=== PATIENT | male | born 1960 | race Caucasian/White ===

== ENCOUNTER 2022-01-30 08:27 | Emergency (ER) | payer MEDICAID, SELFPAY ==
[2022-01-30] VITALS (18 sets, daily range): BP systolic 112–125; BP diastolic 51–80; PULSE 55–84; RESP 6–20; TEMP 36.5; O2SAT 95–98
--- NOTE | ~2022-01-30 | CT_ITS ---
EXAMINATION: CT brain wo con DATE: 01/30/2022 09:36 INDICATION: Seizure. TECHNIQUE: Computed tomography (CT) of the head was performed without intravenous contrast. The mA wa s adjusted according to patient size. Iterative reconstruction technique was employed. The dose-lengt h product was 605.33 mGy-cm. COMPARISON: None FINDINGS: There is no intracranial hemorrhage, acute infarction, or abnormal intracranial mass lesion . The ventricles are normal in size. There is mild mucosal thickening in the paranasal sinuses. The m astoid air cells are normal. The orbits are normal. IMPRESSION: 1. Normal brain. Reviewed, dictated and finalized at location A. IMPRESSION: 1. Normal brain.
--- NOTE | 2022-01-30 08:40 | ECG_ITS ---
Measurements Intervals [place] Rate: 70 P: 56 AK: 203 QRS: -35 QRSD: 107 T: 38 QT: 383 QTc: 416 Interpretive Statements SINUS RHYTHM LEFT AXIS DEVIATION BORDERLINE AV CONDUCTION DELAY BASELINE WANDER- I, II BORDERLINE ECG Electronically Signed On 01-30-2022 8:53:58 CDT by Truong Herrera D.O.
--- NOTE | 2022-01-30 08:58 | ED.GENADULT ---
HPI - General Adult General Chief complaint: Seizure <KEN Pal Last Filed: 01/30/22 11:26> Stated complaint: SZ <KEN Pal Last Filed: 01/30/22 11:26> Time Seen by Provider: 01/30/22 08:58 <Kelsea Rivera PA-C - Last Filed: 01/30/22 11:26> Source: patient and family <KEN Pal Last Filed: 01/30/22 11:26> Mode of arrival: ambulatory <KEN Pal Last Filed: 01/30/22 11:26> Limitations: no limitations <KEN Pal Last Filed: 01/30/22 11:26> History of Present Illness HPI narrative: Patient is a 61 y/o male who presents to the ED with c/o seizure-like activity. Patient significant other and sister at bedside. He lives with significant other. S.O. reports that patient had an episode of seizure-like activity last Sunday, and this morning. S.O. states he woke up hearing patient thrashing around and went to his bedroom. He reports the episodes consist of abnormal movements that lasts a few minutes and a period of confusion/decreased responsiveness for at least 10-15 minutes, described as though the patient is out of it . He states the patient's movements seemed very sporadic, and not necessarily tonic-clonic in nature with shaking or locking of extremities. S.O. does report that patient had incontinence of his bladder last Sunday, but denies any issues with this today. No biting of tongue. Patient was evaluated by EMS last Sunday, but refused transport to the hospital for evaluation. He does not remember anything about the episodes. Today, he reports he remembers going to sleep last night and waking up to his S.O. in his bedroom. He denies any headache, vision changes, dizziness, lightheadedness, chest pain, difficulty breathing, abdominal pain, nausea, vomiting, focal weakness. Denies a diagnosed history of seizures, but states he may have had a seizure 40 years ago. He has never been on any antiepileptic medications. Denies any recent stressful events. No new medications. No recent illnesses. <Kelsea Rivera PA-C - Last Filed: 01/30/22 11:26> Related Data Allergies/adverse reactions: Allergies Allergy/AdvReac Type Severity Reaction Status Date / Time No Known Allergies Allergy Verified 01/30/22 08:41 <Kelsea Rivera PA-C - Last Filed: 01/30/22 11:26> Review of Systems Review of Systems: CONSTITUTIONAL: Denies fever, chills. EYES: Denies visual changes. CARDIOVASCULAR: Denies chest pain. RESPIRATORY: Denies dyspnea. GASTROINTESTINAL: Denies abdominal pain, nausea, vomiting. GENITOURINARY: Reports incontinence of urine. MUSCULOSKELETAL: Denies back pain. NEUROLOGIC: Reports seizure-like activity. Denies headache, dizziness, lightheadedness, numbness, or focal weakness. <Kelsea Rivera PA-C - Last Filed: 01/30/22 11:26> All systems reviewed & are unremarkable except as noted in HPI and below <Kelsea Rivera PA-C - Last Filed: 01/30/22 11:26> PMFSH Past Medical History Medical History: Medical History (Updated 01/30/22 @ 11:10 by Kelsea Rivera PA-C) No pertinent past medical history <Kelsea Rivera PA-C - Last Filed: 01/30/22 11:26> Surgical History Surgical History: Surgical History (Updated 01/30/22 @ 09:59 by Kelsea Rivera PA-C) No pertinent past surgical history <Kelsea Rivera PA-C - Last Filed: 01/30/22 11:26> Social History Social History: Social History (Updated 01/30/22 @ 09:59 by Kelsea Rivera PA-C) Smoking status: Never smoker <Kelsea Rivera PA-C - Last Filed: 01/30/22 11:26> Exam Narrative: GENERAL: Well appearing, well-nourished, non-toxic, in no acute distress. HEAD: Normocephalic, atraumatic. EYES: PERRL/EOMI, conjunctivae clear bilaterally. No nystagmus. NECK: Supple. No adenopathy, no masses. RESPIRATORY: Airway patent, respirations nonlabored. Clear to auscultation bilaterally, no rales, rhonchi, wheezing. CARDIOVASCULAR: Regular rate and rhyt
[2022-01-30 09:07] LABS: Basophils Absolute Auto 0.1 K/mm3 (0.0-0.1); Basophils Percent Auto 0.8 % (0.2-1.2); Eosinophils Absolute Auto 0.1 K/mm3 (0-0.3); Hemoglobin 14.1 g/dL (14.0-18.0); Immature Granulocyte Absolute 0.02 K/mm3 (0.00-0.031); Immature Granulocyte Percent A 0.3 % (0-0.5); Lymphocytes Absolute Auto 1.16 K/mm3 (0.9-3.2); Lymphocytes Percent Auto 16.2 % (18.3-44.2); Mean Corpuscular HGB Conc 33.6 g/dl (32-36); Mean Corpuscular Volume 95.2 fl (80-100); Mean Platelet Volume 8.4 fl (7.4-10.4); Monocytes Absolute Auto 0.8 K/mm3 (0.1-0.6); Monocytes Percent Auto 10.9 % (2.6-8.5); Neutrophils Percent Auto 69.8 % (45.5-73.1); Platelet Count Result 293 k/mm3 (150-375); Red Blood Count 4.41 M/mm3 (4.6-6.20); White Blood Count 7.1 K/mm3 (4.5-10.0)
[2022-01-30 09:15] LABS: Alanine Aminotransferase 21 U/L (6-50); Albumin Level 4.4 g/dL (3.5-5.1); Alkaline Phosphatase 71 U/L (38-126); Anion Gap 6 mmol/L (8-16); Aspartate Amino Transferase 33 U/L (17-59); Bilirubin,Total 0.6 mg/dL (0.2-1.3); Blood Urea Nitrogen 20 mg/dL (9-20); Calcium 9.4 mg/dL (8.4-10.2); Carbon Dioxide 27 mmol/L (22-30); Chloride 106 mmol/L (98-107); Estimated Glomerular Filt Rate > 60; Glucose 105 mg/dL (65-110); Potassium 3.9 mmol/L (3.4-5.0); Sodium 139 mmol/L (137-145)
[2022-01-30] MEDS: levETIRAcetam 1000MG/NACL100ML 1,000 MG/100 ML BAG 400 MG IVPB (10:08)
[2022-01-30 10:19] LABS: Appearance Urine Cloudy (Clear); Bilirubin Urine Negative (Negative); Color Urine Yellow (Yellow); Glucose Urine UA Negative (Negative); Ketones Urine Negative (Negative); Leukocyte Esterase Ur 3+ LEU/UL (Negative); Nitrate Urine Negative (Negative); Protein Urine Trace mg/dL (Negative); Urobilinogen Urine 0.2 mg/dL (<2.0)
[2022-01-30 10:23] LABS: Add Urine Microscopic? YES; Blood Urine Trace-Intact (Negative)
[2022-01-30 10:24] LABS: RBC Urine 0-2 /hpf (0-2); WBC Urine >75 /hpf
[2022-01-30 10:25] LABS: Lactic Acid Reflex 1.3 mmol/L (0.7-2.0)
[2022-01-30 10:28] LABS: Creatine Kinase 257 U/L (55-170); Magnesium 2.1 mg/dL (1.6-2.3)
[2022-01-30 10:31] LABS: Amphetamine Screen Urine Negative (Negative); Barbiturate Screen Urine Negative (Negative); Benzodiazepines Screen Urine Negative (Negative); Cannabinoid Screen Urine Positive (Negative); Cocaine Screen Urine Negative (Negative); Methadone Screen Urine Negative (Negative); Opiate Screen Urine Negative (Negative); Phencyclidine Screen Urine Negative (Negative)
[2022-01-30] MEDS: SODIUM CHLORIDE 0.9% IV 1,000 ML 999 ML IV CONT (10:56)
== END 2022-01-30 11:45 | disposition home or self-care (01) ==
PROVIDERS: Physician Assistant; Emergency Provider Emergency Medicine
DX: R56.9 Unspecified convulsions (principal); N30.00 Acute cystitis without hematuria; R94.31 Abnormal electrocardiogram [ECG] [EKG]
CPT/HCPCS: 36415; 70450; 80053; 80307; 81001; 82550; 83605; 83735; 85025; 87086; 87088; 93005; 96361; 96365; 99284; J1953; J7030